=== PATIENT | male | born 1975 | race Caucasian/White ===

== ENCOUNTER 2023-02-08 13:50 | Outpatient (AMB) | payer OTHER, SELFPAY ==
--- NOTE | 2023-02-08 13:52 | A.OFFVIS_ITS ---
Intake Vital Signs 02/08/23 14:00 Height 5 ft 9 in Weight 187 lb 2 oz BMI 27.6 BP 139/92 H Blood Pressure Location Lt brachial Position Sitting Pulse 62 Intake Visit Reasons: left direct inguinal hernia Intake Note: Patient is seen in office for evaluation and treatment of a left inguinal hernia. 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 He 1st noted the lump in the end of November 2022 but denies any inciting event. The lump seems to increase in size towards the end the day this patient with heavy lifting but does reduce light pressure and while in the supine position. He denies a previous history of hernias or hernia surgery. He denies nausea, vomiting, fever, chills, diarrhea or constipation. PFSH Surgical History Hx of shoulder surgery Social History Alcohol intake: current Patient Tobacco Use Status: Never used Tobacco Review of Systems Const All systems reviewed & are unremarkable except as noted in HPI and below Denies chills, Denies fever(s), Denies headache(s), Denies poor appetite and Denies weakness ENT Denies headache(s) Card Denies chest pain, Denies irregular heart rhythm, Denies palpitations and Denies dyspnea Resp Denies cough, Denies excessive phlegm production and Denies dyspnea GI Reports as per HPI, Reports abdominal pain, Denies bloating, Denies change in bowel habits, Denies constipation, Denies heartburn, Denies diarrhea, Denies nausea and Denies vomiting Denies difficulty urinating and Denies urinary frequency Musc Denies back pain, Denies muscle weakness and Denies numbness Skin/Breast Denies changing lesions and Denies unusual bruising Neuro Denies headache(s), Denies numbness, Denies paresthesias and Denies weakness Psych Denies anxiety and Denies depression Endo Denies palpitations Fabricio/Lymph Denies lymphadenopathy Physical Exam Vital Signs: Last Vital Signs Pulse 62 02/08/23 14:00 BP 139/92 H 02/08/23 14:00 BMI result Body Mass Index 27.6 Const General: cooperative and no acute distress Nutritional Appearance: well nourished Orientation/consciousness: patient oriented x3 Limitations: no limitations HEENT Head: Yes normocephalic and Yes atraumatic Ears: hearing grossly normal bilaterally Resp Effort & Inspection: normal respiratory effort, no audible wheezes, no cough and no respiratory distress Cardio Jugular venous distension: no JVD GI Other: Examination in the standing position reveals an easily identified left inguinal hernia which increases with Valsalva maneuvers and reduces with light pressure. No right inguinal hernias identified. Inspection: Yes normal to inspection Palpation (GI): Soft to palpation, nontender, no guarding and not rigid Skin Other: Warm, dry, no rash Neuro General: patient oriented x3 Extrem General: Yes no clubbing, cyanosis or edema Assessment & Plan Assessment & Plan (1) Direct left inguinal hernia: Code(s): K40.90 - Unilateral inguinal hernia, without obstruction or gangrene, not specified as recurrent Plan 48-year-old male patient presenting with a reducible symptomatic left inguinal hernia which increases in size with Valsalva maneuvers. I recommended repair of this left inguinal hernia with mesh. After discussion of the procedure, risks, and alternatives, he consents to the surgery. He will be scheduled as a short- stay surgery at his earliest convenience. Coding Level of Care Code New Pt Level 4 (88295) Diagnoses Direct left inguinal hernia K40.90
[2023-02-08 14:00] VITALS: BP 139/92; PULSE 62; BMI 27.6
== END 2023-02-08 14:09 | disposition home or self-care (01) ==
PROVIDERS: PCP Internal Medicine; Visit Provider Surgery
DX: K40.90 Unilateral inguinal hernia, without obstruction or gangrene, not specified as recurrent (principal)
CPT/HCPCS: 99204

== ENCOUNTER → 2023-02-08 13:50 | Outpatient (BNVA) | payer OTHER, SELFPAY | PROVIDERS: PCP Internal Medicine; Visit Provider Surgery ==

== ENCOUNTER 2023-02-16 07:36 | Day surgery (SDC) | payer OTHER, SELFPAY ==
--- NOTE | 2023-02-15 10:18 | HO.ANESPROP2 ---
Documented by User: Savanna Aguilera NP 02/15/23 10:19 HPI - Anesthesia Eval Consult details Narrative: 48yo M for OPEN Hernia Repair Inguinal with mesh PMFSH Active Problems Active Problems: All Active Problems (Updated 02/08/23 @ 14:23 by Sanjeev Mijares MD) Direct left inguinal hernia (Acute) Surgical History Surgical History Hx of shoulder surgery Social History Social History Alcohol intake: current Patient Tobacco Use Status: Never used Tobacco Use of substances other than those prescribed or required for medical reasons: No Are you DNR?: No Advance Directives: No Advance Directives Information Provided: Yes Meds Allergies Allergy/AdvReac Type Severity Reaction Status Date / Time No Known Allergies Allergy Verified 02/08/23 14:03 Exam Exam Date and Time: February 15, 2023 101 Assessment and Plan Assessment Anesthesia Assessment: Chart Reviewed Documented by User: Liliana Neville MD 02/16/23 09:48 PMFSH Family History Family history of problems with anesthesia: No Surgical History Surgical History Hx of shoulder surgery History of Problems with Anesthesia: No Social History Social History Alcohol intake: current Patient Tobacco Use Status: Never used Tobacco Use of substances other than those prescribed or required for medical reasons: No Are you DNR?: No Advance Directives: No Advance Directives Information Provided: Yes Meds Allergies Allergy/AdvReac Type Severity Reaction Status Date / Time No Known Allergies Allergy Verified 02/08/23 14:03 Exam Airway Mallampati Class: I TM Dist: >3cm Neck ROM: Full Lungs: clear Assessment and Plan Assessment Anesthesia Assessment: Anesthesia Plan Discussed Final Anesthetic Review Family History of Problems with Anesthesia: No History of Problems with Anesthesia: No NPO: Yes ASA Class: II Final Preanesthetic Review: No Changes in Pt Med Stat, Meds/Allgs Chart Reviewed, Consent Obtained/Reviewed and Anes Risks/Benef Reviewed Patient Risk: Low Procedure Risk: Low Anesthetic Plan Anesthetic Plan: GA Disposition: Standard PACU
[2023-02-16] VITALS (7 sets, daily range): BP systolic 129–147; BP diastolic 84–96; PULSE 49–57; RESP 15–18; TEMP 36.1–36.6; O2SAT 98–99; BMI 26.6
[2023-02-16] MEDS: Lactated Ringers 1,000 ML 100 ML IVCONT (08:12)
--- NOTE | 2023-02-16 08:44 | MHC.SHP ---
Pre-Procedural Eval Section A Date of Service: 02/16/23 The patient is an INPATIENT: No Changes since office visit: Yes Patient answered all questions; No Cold of Flu in the past 2 weeks, No New Medical Problems and No Changes in Medication The History & Physical has been completed within 30 days and I have reviewed it.: Yes Section B Chief Complaint: Unilateral inguinal hernia, without obstruction or Allergies: Allergies Allergy/AdvReac Type Severity Reaction Status Date / Time No Known Allergies Allergy Verified 02/08/23 14:03 Plan Diagnosis/Plan: Unchanged I have reviewed the history and physical and performed a pertinent physical examination on my patient. No changes have occurred unless specified. Time Spent With Patient Time: Total time managing care of this patient today ____ minutes.
--- NOTE | 2023-02-16 09:29 | P.OP_ITS ---
Operative Note Operative Note Date of Service: 02/16/23 Narrative: Preoperative diagnosis: Left inguinal hernia, reducible Postoperative diagnosis: Left inguinal hernia, reducible, indirect Procedure: Repair of a left inguinal hernia with mesh Surgeon: Sanjeev Mijares MD Maintenance Mechanic Supervisor: Rosy Cohen PA-C, DAVID Lopez Anesthesia: General LMA Indications for procedure: 48-year-old male patient presenting with a palpable lump in the left groin which increases with lifting and straining and reduces with light pressure. On examination patient is found to have a left inguinal hernia which increases with Valsalva maneuvers. The hernia easily reduces with light pressure. Operative findings: Indirect left inguinal hernia, sliding type Specimen: Hernia sac, lipoma of the cord Estimated blood loss: 2 mL Complications: None Procedure details: Patient was brought to the OR placed in a supine position. After administering general anesthesia the patient's abdomen was prepped with ChloraPrep and draped in a sterile fashion. A surgical time-out was called and the consent confirmed. Patient received preoperative antibiotics and Venodyne boots were in place. Local anesthesia consisting of 0.5% Sensorcaine with epinephrine was then infiltrated over the left inguinal ligament. Incision was then made over the inguinal ligament carried out through subcutaneous tissue, past Salma's fashion of the external oblique aponeurosis. Additional local was infiltrated below the aponeurosis and this was then incised with the scalpel widened with the Metzenbaum scissors. The spermatic cord was then dissected free from the surrounding inguinal canal and retracted using a West drain. The floor of the inguinal canal was found to be intact without hernia. Fibers of the cremaster muscles were then with electrocautery and the spermatic cord explored. A moderate size lipoma the cord was identified and excised. A small hernia sac was also identified. This was dissected towards the internal ring. The sac was opened and a sliding hernia identified. This was mobilized and the sliding component reduced into the abdominal cavity. The sac was then ligated using a 0 Polysorb suture. Sac was excised and sent as a specimen. Attention was then directed to the floor of the inguinal canal. Fibers of the internal oblique aponeurosis and transversalis aponeurosis were incised with electrocautery. The preperitoneal space was then entered. This was dissected further using an open Ray-Alexandre sponge. A large extended PHS mesh was then obtained. The circular underlay was then deployed within the preperitoneal space. The overlay was then deployed and secured to the pubic tubercle, conjoined tendon, and shelving edge of the inguinal ligament using 0 Polysorb suture. A Slit was made in the mesh and the mesh wrapped around the spermatic cord at the internal ring. This was then secured to the shelving edge using the 0 Polysorb suture. The remaining of the mesh was placed below the external oblique aponeurosis laterally. Wounds were then irrigated with saline solution and suctioned dry. External oblique aponeurosis was then closed using a running 2-0 Polysorb suture. 6 mL of Zenrelef was then infiltrated below the external oblique aponeurosis for postoperative pain relief. Salma's fascia and dermis were then reapproximated using interrupted 3-0 Polysorb sutures. Skin was closed using a running subcuticular 4-0 Polysorb suture. Steri-Strips, 2 x 2 gauze and Tegaderm were then applied. The patient tolerated the procedure well. Sponge, instrument, needle counts reported as correct. The patient was transferred to PACU in stable condition.
== END 2023-02-16 11:45 | disposition home or self-care (01) ==
PROVIDERS: PCP Internal Medicine; Visit Provider Surgery
PROC: (CPT 49525; principal; 2023-02-16 09:10)
DX: K40.90 Unilateral inguinal hernia, without obstruction or gangrene, not specified as recurrent (principal); D17.6 Benign lipomatous neoplasm of spermatic cord; Z98.890 Other specified postprocedural states
CPT/HCPCS: 49525; 88302; 88304; C1781; C9088; J0131; J0690; J1100; J1885; J2250; J2405; J3010

== ENCOUNTER → 2023-02-16 07:36 | Outpatient (BNV) | payer OTHER, SELFPAY | PROVIDERS: PCP Internal Medicine; Visit Provider Surgery | DX: K40.90 Unilateral inguinal hernia, without obstruction or gangrene, not specified as recurrent (principal) | CPT/HCPCS: 49505 ==

== ENCOUNTER 2023-02-24 09:40 | Outpatient (AMB) | payer OTHER, SELFPAY ==
--- NOTE | 2023-02-24 09:49 | MHC.OFFVIS ---
Intake Vital Signs 02/24/23 09:54 Height 5 ft 9 in Weight 187 lb BMI 27.6 BP 133/86 Blood Pressure Location Lt brachial Position Sitting Pulse 51 Intake Visit Reasons: S/P RIH w/mesh Intake Note: Patient is seen in office for post op assessment post right inguinal hernia repair. 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 He does report some swelling in the testicle with bruising but feels this is improving. There is some pain and numbness in the incision on occasion but generally feels much improved. Denies any nausea, vomiting, constipation or diarrhea. He returns today for wound check. [facility] Surgical History History of right inguinal hernia repair (02/16/23) Hx of shoulder surgery Social History Alcohol intake: current Patient Tobacco Use Status: Never used Tobacco Physical Exam Const General: no acute distress Nutritional Appearance: well nourished Orientation/consciousness: patient oriented x3 Resp Effort & Inspection: normal respiratory effort, no audible wheezes, no cough and no respiratory distress GI Other: Left inguinal incision is clean, dry, and intact. No hernias noted with Valsalva maneuvers. There is ecchymosis in the scrotal sac but no hematoma/seroma. Skin Other: Warm, dry, no rash Neuro General: patient oriented x3 Extrem Other: No peripheral edema Assessment & Plan Assessment & Plan (1) Direct left inguinal hernia: Code(s): K40.90 - Unilateral inguinal hernia, without obstruction or gangrene, not specified as recurrent Plan 48-year-old male patient returning 1 week following left inguinal hernia repair with mesh. He tolerated the procedure well the wounds are healing nicely. He should continue to avoid lifting greater than 10 lb and should return approximately 1 month for wound examination. He is welcome to call sooner for any new concerns. Coding Level of Care Code Global (63709) Diagnoses Direct left inguinal hernia K40.90
[2023-02-24 09:54] VITALS: BP 133/86; PULSE 51; BMI 27.6
== END 2023-02-24 09:57 | disposition home or self-care (01) ==
PROVIDERS: PCP Internal Medicine; Visit Provider Surgery
DX: K40.90 Unilateral inguinal hernia, without obstruction or gangrene, not specified as recurrent (principal)
CPT/HCPCS: 99024

== ENCOUNTER → 2023-02-24 09:40 | Outpatient (BNVA) | payer OTHER, SELFPAY | PROVIDERS: PCP Internal Medicine; Visit Provider Surgery ==

== ENCOUNTER 2023-03-25 09:35 | Outpatient (AMB) | payer OTHER, SELFPAY ==
--- NOTE | 2023-03-25 09:36 | MHC.OFFVIS ---
Intake Vital Signs 03/25/23 09:42 Height 5 ft 9 in Weight 187 lb 8 oz BMI 27.7 BP 143/95 H Blood Pressure Location Lt brachial Position Sitting Pulse 56 Intake Visit Reasons: 1 mth follow up RIH w/mesh Intake Note: Patient is seen in office for one month follow up, post right inguinal hernia repair. Patient c/o: some numbness in the area, denies any other concerns Wax Cutter Required: No Accompanied by: Self / Same As Patient Allergies No Known Allergies Allergy (Verified 03/25/23 09:44) HPI HPI Comments History of Present Illness Details 48-year-old male patient returning 1 month following repair of a left inguinal hernia with mesh. He tolerated the procedure well but does report some numbness below the incision. He denies any significant pain, redness or discharge. Feels ready to return to normal activity. REPLACED BY [facility] Surgical History History of right inguinal hernia repair (02/16/23) Hx of shoulder surgery Social History Alcohol intake: current Patient Tobacco Use Status: Never used Tobacco Physical Exam Const General: no acute distress Nutritional Appearance: well nourished Orientation/consciousness: patient oriented x3 Resp Effort & Inspection: normal respiratory effort, no audible wheezes, no cough and no respiratory distress GI Other: Left inguinal incision is clean, dry, and intact. No hernias noted with Valsalva maneuvers. No further ecchymosis or swelling noted. Skin Other: Warm, dry, no rash Neuro General: patient oriented x3 Extrem Other: No peripheral edema Assessment & Plan Assessment & Plan (1) Direct left inguinal hernia: Code(s): K40.90 - Unilateral inguinal hernia, without obstruction or gangrene, not specified as recurrent Plan 48-year-old male patient returning 1 month following left inguinal hernia repair with mesh. He tolerated the procedure well the wounds are healing nicely. He may resume normal activity without restriction and should follow up as needed. Coding Level of Care Code Global (30169) Diagnoses Direct left inguinal hernia K40.90
[2023-03-25 09:42] VITALS: BP 143/95; PULSE 56; BMI 27.7
== END 2023-03-25 09:53 | disposition home or self-care (01) ==
PROVIDERS: PCP Internal Medicine; Visit Provider Surgery
DX: K40.90 Unilateral inguinal hernia, without obstruction or gangrene, not specified as recurrent (principal)
CPT/HCPCS: 99024

== ENCOUNTER → 2023-03-25 09:35 | Outpatient (BNVA) | payer OTHER, SELFPAY | PROVIDERS: PCP Internal Medicine; Visit Provider Surgery ==